=== PATIENT | male | born 2000 | race Native Hawaiian/Other Pacific Islander ===

== ENCOUNTER 2022-03-01 17:14 | Emergency (ER) | payer OTHER, MEDICAID, SELFPAY ==
[2022-03-01 17:25] VITALS: BP 119/79; PULSE 90; RESP 18; TEMP 36.8; O2SAT 99; BMI 21.5
--- NOTE | 2022-03-01 17:53 | ED.GENADULT ---
HPI - General Adult General Chief complaint: Laceration/Wound Stated complaint: Left Arm Laceration Time Seen by Provider: 03/01/22 17:27 Source: patient Mode of arrival: ambulatory Limitations: no limitations History of Present Illness HPI narrative: 21-year-old male coming in today concerned about a puncture wound to his arm. States that he was at work and a piece of aluminum went into his arm. Denies any other injury. Unsure of his last tetanus shot. He was able to remove the entire piece of aluminum without difficulty. Related Data Previous Rx's Medication Instructions Recorded amoxicillin 875 mg-potassium 1 tab PO BID #10 tabs 03/01/22 clavulanate 125 mg tablet Allergies Allergy/AdvReac Type Severity Reaction Status Date / Time No Known Drug Allergies Allergy Verified 03/01/22 17:32 Review of Systems Narrative: Denies other injury. Exam Narrative: Exam Narrative: Well-nourished well-developed patient in no acute distress. Alert and oriented. Answers questions appropriately. Mood and affect are appropriate. Thoughts are goal oriented and rational. No tangential or magical thinking noted. Patient speaks in full sentences without needing to catch their breath. Speech is not slurred or pressured. HEENT: Normocephalic atraumatic. Pupils are equally round reactive to light. Extraocular muscles are intact. Conjunctivae are moist without any icterus noted. Extremities: Patient has approximately a 7 mm open wound just proximal to the anterior flexor surface of the elbow. The skin is gaping open. The wound appears to go into the subcutaneous tissue but no further. He has full range of motion at the elbow, shoulder and wrist. Hand electronics scale tester is normal and symmetric. Biceps tendon appears to be intact. Const: Vital Signs, click to edit/add: Vital Signs - 24 hr 03/01/22 17:25 Temperature 98.2 F Pulse Rate [Pulse Oximeter] 90 Respiratory Rate 18 Blood Pressure [Ri ght Upper Arm] 119/79 Pulse Oximetry 99 Oxygen Delivery Me thod Room Air Course Course Hospital Course: Wound was washed out in the ED today with irrigation and wound cleanser. 1% lidocaine with epinephrine was used to anesthetize the area. One suture with 3-0 Ethilon was placed without difficulty. Tdap was last updated in 2010, therefore we did go ahead and update that today. Vital Signs Vital signs: Initial Vital Signs Temperature 98.2 F 03/01/22 17:25 Temperature Source Temporal Artery Scan 03/01/22 17:25 Pulse Rate 90 03/01/22 17:25 Pulse Rhythm 03/01/22 17:25 Respiratory Rate 18 03/01/22 17:25 Blood Pressure 119/79 03/01/22 17:25 Blood Pressure Mean 92 03/01/22 17:25 Blood Pressure Position Supine 03/01/22 17:25 Pulse Oximetry 99 03/01/22 17:25 Oxygen Delivery Method 03/01/22 17:25 Vital Signs Temperature 98.2 F 03/01/22 17:25 Pulse Rate 90 03/01/22 17:25 Respiratory Rate 18 03/01/22 17:25 Blood Pressure 119/79 03/01/22 17:25 Pulse Oximetry 99 03/01/22 17:25 Oxygen Delivery Method 03/01/22 17:25 Temperature 98.2 F 03/01/22 17:25 Pulse Rate 90 03/01/22 17:25 Respiratory Rate 18 03/01/22 17:25 Blood Pressure 119/79 03/01/22 17:25 Pulse Oximetry 99 03/01/22 17:25 Oxygen Delivery Method 03/01/22 17:25 Medical Decision Making MDM Narrative Medical decision making narrative: Puncture wound to upper left arm, sutured in the ED today. We discussed wound hygiene, signs and symptoms of infections, reasons to return to clinic. Given that we are uncertain of how deep the piece of metal went, I did prescribe him Augmentin to start in the event of infection. We discussed what infection looks like. He has any concerns I encouraged him to return to the ER. Otherwise we discussed suture removal in 7-10 days. Discharge Plan Discharge Clinical Impression: Puncture wound Patient Disposition: Home, Self-Care Condition: Improved Additional Instructions: Keep wound clean and dry. Okay to shower like he normally would but do not soak it-no swimming or sitting in a hot tub for example. Watch for signs of infection which include increasing redness around the wound, the redness will start to increase up and down the arm. If this occurs go ahead start your antibiotic. If you have any concerns about whether not it is infected follow-up with your primary care doctor right away. Suture should be removed by her primary care physician in about 7-10 days. Prescriptions: New amoxicillin-pot clavulanate 875-125 mg tablet 1 tab PO BID Qty: 10 0RF Follow Up/Referrals: Contreras Mcallister MD [Primary Care Provider] - Stand Alone Forms: [employer] Info Instructions
== END 2022-03-01 18:26 | disposition home or self-care (01) ==
LOC: ED 18:09
PROVIDERS: Emergency Provider Family Medicine; PCP Family Medicine
DX: S51.832A Puncture wound without foreign body of left forearm, initial encounter (principal); W26.9XXA Contact with unspecified sharp object(s), initial encounter
CPT/HCPCS: 12001; 90471; 99283

== ENCOUNTER 2022-08-22 21:09 | Emergency (ER) | payer MEDICAID, SELFPAY ==
[2022-08-22 21:13] VITALS: BP 149/83; PULSE 98; RESP 16; TEMP 36.6; O2SAT 100
--- NOTE | 2022-08-22 21:35 | CRLHL7_ITS ---
For Patients: As a result of the Century Cures Act, medical imaging exams and procedure reports are released immediately into your electronic medical record. You may view this report before your referring provider. If you have questions, please contact your health care provider. INDICATION: Chest wall pain. TECHNIQUE: Chest 2 view. COMPARISON: 02/20/2020. FINDINGS: Cardiovascular and mediastinum: Heart size and vasculature are normal in caliber and appearance. Lungs and pleural spaces: Lungs are clear. No sign of infiltrate or mass. No sign of pleural effusion. No pneumothorax. Bones and soft tissues: No significant findings. IMPRESSION: No acute or significant findings. Dictated by Jonathan Portillo MD @ 08/22/2022 10:01:52 PM (Electronically Signed)
--- NOTE | 2022-08-22 21:38 | ED_ITS ---
HPI - General Adult General Chief complaint: Back Injury/Pain Stated complaint: Upper back pain Time Seen by Provider: 08/22/22 21:21 Source: patient Mode of arrival: ambulatory Limitations: no limitations History of Present Illness HPI narrative: 22-year-old male presents with a 4 day history of pain along the right upper posterior shoulder blade area. No trauma or injury. Did start suddenly while he was walking out of work. He feels short of breath, worse with activity. No history of pneumothorax, DVT or PE. No family history of PE. He is not anticoagulated. No palpitations. No cough. No hemoptysis. No abdominal pain or fever. He has been taking Tylenol with no significant improvement in his pain and rates his pain 9/10. Has not tried NSAIDs. He had similar pain 1 month ago that lasted a couple of hours but then went away with no complications. No other prior history of similar symptoms. Past medical history is benign no major long-term health problems. No medications, no allergies. Socially is a nonsmoker with no illicit drug use. No pertinent travel. Family history negative for coagulopathy. ROS notable for the posterior chest pain only, otherwise negative times 12 systems. Related Data Previous Rx's Medication Instructions Recorded amoxicillin 875 mg-potassium 1 tab PO BID #10 tabs 03/01/22 clavulanate 125 mg tablet Allergies Allergy/AdvReac Type Severity Reaction Status Date / Time No Known Drug Allergies Allergy Verified 03/01/22 17:32 [facility] Social History Smoking Status: Never smoker Do you use any of these nicotine containing products: None Second hand tobacco smoke exposure: No How often do you have a drink containing alcohol: never How often do you have six or more drinks on one occasion: Never AUDIT-C Alcohol total score: 0 Non-prescribed substance use: denies use service: No Exam Const: Vital Signs, click to edit/add: Vital Signs - 24 hr 08/22/22 21:13 Temperature 97.9 F Pulse Rate [Left P ulse Oximeter] 98 Respiratory Rate 16 Blood Pressure [Ri ght Upper Arm] 149/83 H Pulse Oximetry 100 Oxygen Delivery Me thod Room Air Documenting provider has reviewed patient's vital signs: yes Common normals: no apparent distress General appearance: cooperative, comfortable and well kempt HENMT: Common normals: normocephalic Head and scalp: normocephalic Face and sinus: normal facial exam Mouth: oral and palatal mucosa normal Throat: posterior oropharynx normal Eye: Common normals: EOMs intact bilaterally General eye: normal appearance of both eyes Neck & C-Spine: Common normals: full ROM and no lymphadenopathy Chest: Common normals: inspection of chest normal and palpation of chest normal Resp: Common normals: normal respiratory effort, no use of accessory muscles and clear to auscultation bilaterally Effort & inspection: able to speak in complete sentences Auscultation: clear to auscultation bilaterally Cardio: Common normals: regular rate, regular rhythm, S1 normal heart sound, S2 normal heart sound, no murmurs and peripheral pulses 2+ throughout Rate: regular rate Rhythm: regular rhythm Heart sounds: S1 normal and S2 normal Peripheral pulses: pulses 2+ throughout GI: Common normals: Normal to inspection, nondistended, normoactive bowel sounds present, soft to palpation, non-tender and no hepatosplenomegaly Palpation: soft and no hepatosplenomegaly : Common normals: no CVA tenderness Bladder/kidney exam: no CVA tenderness Back & Pelvis: Common normals: no CVA tenderness and thoracic and lumbar spine normal to inspection Extremity: Common normals: normal capillary refill and no pedal edema Other: Calves are soft with no palpable cords. Neuro: Speech: speech normal Motor exam: no tremor noted and no movement abnormalities noted Psych: Common normals: thought process normal, cooperative and affect normal Appearance: well kempt Thought process: normal thought process Insight: insight good Judgement: judgment good Skin: Common normals: no rashes or lesions noted General skin exam: no ra shes or lesions noted Course Vital Signs Vital signs: Initial Vital Signs Temperature 97.9 F 08/22/22 21:13 Temperature Source Temporal Artery Scan 08/22/22 21:13 Pulse Rate 98 08/22/22 21:13 Pulse Rhythm 08/22/22 21:13 Respiratory Rate 16 08/22/22 21:13 Blood Pressure 149/83 H 08/22/22 21:13 Blood Pressure Mean 105 08/22/22 21:13 Blood Pressure Position Sitting 08/22/22 21:13 Pulse Oximetry 100 08/22/22 21:13 Oxygen Delivery Method 08/22/22 21:13 Vital Signs Temperature 97.9 F 08/22/22 21:13 Pulse Rate 98 08/22/22 21:13 Respiratory Rate 16 08/22/22 21:13 Blood Pressure 149/83 H 08/22/22 21:13 Pulse Oximetry 100 08/22/22 21:13 Oxygen Delivery Method 08/22/22 21:13 Temperature 97.9 F 08/22/22 21:13 Pulse Rate 98 08/22/22 21:13 Respiratory Rate 16 08/22/22 21:13 Blood Pressure 149/83 H 08/22/22 21:13 Pulse Oximetry 100 08/22/22 21:13 Oxygen Delivery Method 08/22/22 21:13 Medical Decision Making MDM Narrative Medical decision making narrative: Differential diagnosis pneumonia, pleurisy, pulmonary embolism, atypical cardiac disease, pneumothorax. Chest x-ray, CBC, D-dimer, CRP recommended. Toradol 15 mg IV x1. Re-evaluate once the studies are available. Update: Some improvement from Toradol. Labs reviewed with patient. Negative D- dimer, do not recommend CT PA. Suspect pleurisy. Reviewed diagnosis with patient. Alarm symptoms reviewed and discussed see discharge instructions for plan of care Lab Data Lab results reviewed: Yes I reviewed the patient's lab results Lab results narrative: Normal D-dimer, normal CRP. Other labs unremarkable. Labs: Lab Results 08/22/22 08/22/22 08/22/22 Range/Units 21:55 21:55 21:55 WBC 7.48 (4.50-11.00) K/uL RBC 5.67 (4.30-5.90) m/uL Hgb 14.5 (13.5-17.5) gm/dL Hct 44.4 (37.0-53.0) % MCV 78 L (80-100) fL MCH 26 (26-34) pg MCHC 33 (32-36) gm/dL RDW Coeff of Loree 14.1 (11.5-15.5) % Plt Count 268 (140-440) K/uL Neut % (Auto) 55.4 (42.0-72.0) % Lymph % (Auto) 32.8 (20-44) % Pratt % (Auto) 8.8 (0.0-11.0) % Eos % (Auto) 2.4 (0.0-7.0) % Baso % (Auto) 0.5 (0.0-3.0) % Neut # (Auto) 4.14 (1.7-7.0) K/uL Lymph # (Auto) 2.45 (0.90-2.90) K/uL Pratt # (Auto) 0.70 (0.00-0.90) K/UL Eos # (Auto) 0.18 (0.00-0.50) K/uL Baso # (Auto) 0.04 (0.00-0.30) K/uL D-Dimer Quant (PE/DVT) 0.34 (0.00-0.50) ug/ml Sodium 141 (135-149) mmol/L Potassium 4.0 (3.6-5.1) mmol/L Chloride 106 (96-114) mmol/L Carbon Dioxide 27 (20-32) mmol/L BUN 18 (5-24) mg/dL Creatinine 0.9 (0.5-1.5) mg/dL Estimated GFR 124 ml/min Glucose 78 (60-115) mg/dL Calcium 9.0 (8.4-10.6) mg/dL C-Reactive Protein < 0.5 L (0.5-1.0) mg/dL ECG Data Attestation: I personally reviewed and interpreted this ECG as follows: Prior ECG tracings: not available for review Interpretation: Normal sinus rhythm rate of 83. No ST or T-wave abnormalities. Good R-wave progression normal axis. Discharge Plan Discharge Clinical Impression: Pleurisy Patient Disposition: Home, Self-Care Condition: Improved Instructions: Pleurisy (DC) Additional Instructions: As we discussed, your chest x-ray is normal. There are no signs of pneumonia, blood clots, problems with your heart or other worrisome findings. All blood work is reassuring as well. This is great news. As we reviewed, your symptoms seem most consistent with pleurisy. This is a common, viral induced, inflammation of the lining of the lungs. It can be quite painful. It tends to last 3-4 weeks. It is okay to continue working and staying active, actually this reduce your risk of complications. For pain, I recommend Aleve which is an [id number] naproxen. Take 2 pills 2 times daily. This lasts longer than ibuprofen. You may also take Tylenol 1000 mg every 6 hours in addition to the Aleve if your pain is still very bothersome. If you start running high fevers and or began coughing up blood or purulent fluid, I recommend repeat evaluation. Activity Level: No Restrictions Discharge Diet: Regular Prescriptions: No Action amoxicillin-pot clavulanate 875-125 mg tablet 1 tab PO BID Qty: 10 0RF Follow Up/Referrals: Contreras Mcallister MD [Primary Care Provider] - Stand Alone Forms: [employer] Info Instructions
[2022-08-22] MEDS: KETOROLAC 15 MG/ML inj IVP (22:10)
[2022-08-22 22:16] LABS: Chloride* 106 mmol/L (96-114); Sodium* 141 mmol/L (135-149)
[2022-08-22 22:19] LABS: Creatinine* 0.9 mg/dL (0.5-1.5); Estimated Glomerular Filt Rate 124 ml/min
[2022-08-22 22:20] LABS: Blood Urea Nitrogen* 18 mg/dL (5-24); Carbon Dioxide* 27 mmol/L (20-32); Glucose* 78 mg/dL (60-115)
[2022-08-22 22:25] LABS: C Reactive Protein* < 0.5 mg/dL (0.5-1.0)
[2022-08-22 22:27] LABS: Basophils Absolute Auto 0.04 K/uL (0.00-0.30); Basophils Percent Auto 0.5 % (0.0-3.0); Eosinophils Absolute Auto 0.18 K/uL (0.00-0.50); Eosinophils Percent Auto 2.4 % (0.0-7.0); Hematocrit 44.4 % (37.0-53.0); Hemoglobin* 14.5 gm/dL (13.5-17.5); Immature Granulocytes Abs Auto 0.01 K/uL (0.00-0.30); Immature Granulocytes Pct Auto 0.1 %; Lymphocytes Absolute Auto 2.45 K/uL (0.90-2.90); Lymphocytes Percent Auto 32.8 % (20-44); Mean Corpuscular HGB Conc 33 gm/dL (32-36); Mean Corpuscular Hemoglobin 26 pg (26-34); Mean Corpuscular Volume 78 fL (80-100); Monocytes Percent Auto 8.8 % (0.0-11.0); Neutrophils Absolute Auto 4.14 K/uL (1.7-7.0); Neutrophils Percent Auto 55.4 % (42.0-72.0); Platelet Count* 268 K/uL (140-440); RDW Coefficient of Variation % 14.1 % (11.5-15.5); Red Blood Count 5.67 m/uL (4.30-5.90); White Blood Count* 7.48 K/uL (4.50-11.00)
[2022-08-22 22:30] LABS: Slide Review Reflex No
[2022-08-22 22:36] LABS: D Dimer Quantitative* 0.34 ug/ml (0.00-0.50)
== END 2022-08-22 23:05 | disposition home or self-care (01) ==
PROVIDERS: Emergency Provider Family Medicine; PCP Family Medicine
DX: R09.1 Pleurisy (principal)
CPT/HCPCS: 36415; 71046; 80048; 85025; 85379; 86140; 93005; 96374; 99283; 99284; 99285; J1885

== ENCOUNTER 2023-01-02 18:19 | Emergency (ER) | payer MEDICAID, SELFPAY ==
[2023-01-02 18:23] VITALS: BP 131/87; PULSE 99; RESP 16; TEMP 37.2; O2SAT 98; BMI 22.3
--- NOTE | 2023-01-02 18:42 | ED.GENADULT ---
HPI - General Adult General Chief complaint: Sore Throat Stated complaint: Sore throat for 3 weeks Time Seen by Provider: 01/02/23 18:23 Source: patient Mode of arrival: ambulatory Limitations: no limitations History of Present Illness HPI narrative: 22-year-old male notes a 3 week history of intermittent bilateral sore throat, worsening over the past few days. No fever. No breathing difficulty. No swallowing difficulty, tends to worsen at night. No cough, no sinus drainage, no ear pain. No trauma or injury. Has use Tylenol couple of times but not consistently. Has not tried ibuprofen. No salt water gargles. No other areas of illness or injury. Appetite is normal. Known exposures to strep or mono. Past medical history is benign, no major long-term health problems. Reports that he had an uncomplicated cholecystectomy 5 years ago. No allergies. Nonsmoker. ROS is notable for the generalized and HEENT symptoms as above, otherwise denies times 12 systems. Related Data Previous Rx's Medication Instructions Recorded amoxicillin 875 mg-potassium 1 tab PO BID #10 tabs 03/01/22 clavulanate 125 mg tablet fluticasone propionate 50 1 spray intranasal DAILY #16 grams 01/02/23 mcg/actuation nasal spray,suspension (Flonase Allergy Relief) loratadine 10 mg tablet 10 mg PO DAILY #30 tabs 01/02/23 Allergies Allergy/AdvReac Type Severity Reaction Status Date / Time No Known Drug Allergies Allergy Verified 01/02/23 18:23 [facility] Social History Smoking Status: Never smoker Do you use any of these nicotine containing products: None Second hand tobacco smoke exposure: No How often do you have a drink containing alcohol: never How often do you have six or more drinks on one occasion: Never AUDIT-C Alcohol total score: 0 Non-prescribed substance use: denies use service: No Exam Const: Vital Signs, click to edit/add: Vital Signs - 24 hr 01/02/23 18:23 Temperature 98.9 F Pulse Rate [Right Pulse Oximeter] 99 Respiratory Rate 16 Blood Pressure [Ri ght Upper Arm] 131/87 Pulse Oximetry 98 Oxygen Delivery Me thod Room Air Documenting provider has reviewed patient's vital signs: yes Common normals: no apparent distress General appearance: cooperative, comfortable and well kempt HENMT: Common normals: normocephalic, head/scalp atraumatic, TM's normal bilaterally and oropharynx normal Head and scalp: normocephalic and atraumatic Face and sinus: normal facial exam Tympanic membrane: TM's normal bilaterally Eye: Common normals: conjunctivae normal General eye: normal appearance of both eyes Conjunctiva: conjunctiva(e) normal Neck & C-Spine: Common normals: full ROM, no lymphadenopathy and thyroid normal Thyroid: thyroid normal Resp: Common normals: normal respiratory effort, no use of accessory muscles and clear to auscultation bilaterally Effort & inspection: able to speak in complete sentences Auscultation: clear to auscultation bilaterally Cardio: Common normals: regular rate, regular rhythm, S1 normal heart sound, S2 normal heart sound and no murmurs Rate: regular rate Rhythm: regular rhythm Heart sounds: S1 normal and S2 normal GI: Common normals: Normal to inspection, nondistended, normoactive bowel sounds present, soft to palpation, non-tender, no hepatosplenomegaly and no masses Palpation: soft and no hepatosplenomegaly Extremity: Common normals: normal to inspection and normal capillary refill Psych: Appearance: well kempt Attitude: calm and engaged Activity/motor behavior: appropriate eye contact Insight: insight good Judgement: judgment good Skin: Common normals: no rashes or lesions noted General skin exam: no rashes or lesions noted Course Course Hospital Course: Differential diagnosis including strep, mono, postnasal drip, environmental allergies, viral pharyngitis, among others. Exam is overall reassuring. Recommended ibuprofen for pain. Strep and mono screen ordered, pending. Reevaluation(s) Time of Reevaluation #1: 19:40 Reevaluation #1: Symptoms stable, reviewed lab findings with patient. Discussed alarm symptoms that would warrant repeat ED visit. Trial of nasal steroid and antihistamine for 2 weeks, primary care follow-up if not improving in 2 weeks. Vital Signs Vital signs: Initial Vital Signs Temperature 98.9 F 01/02/23 18:23 Temperature Source Temporal Artery Scan 01/02/23 18:23 Pulse Rate 99 01/02/23 18:23 Pulse Rhythm Regular 01/02/23 18:23 Pulse Strength 3+ Normal 01/02/23 18:23 Respiratory Rate 16 01/02/23 18:23 Blood Pressure 131/87 01/02/23 18:23 Blood Pressure Mean 101 01/02/23 18:23 Blood Pressure Position Sitting 01/02/23 18:23 Pulse Oximetry 98 01/02/23 18:23 Oxygen Delivery Method Room Air 01/02/23 18:23 Vital Signs Temperature 98.9 F 01/02/23 18:23 Pulse Rate 99 01/02/23 18:23 Respiratory Rate 16 01/02/23 18:23 Blood Pressure 131/87 01/02/23 18:23 Pulse Oximetry 98 01/02/23 18:23 Oxygen Delivery Method Room Air 01/02/23 18:23 Temperature 98.9 F 01/02/23 18:23 Pulse Rate 99 01/02/23 18:23 Respiratory Rate 16 01/02/23 18:23 Blood Pressure 131/87 01/02/23 18:23 Pulse Oximetry 98 01/02/23 18:23 Oxygen Delivery Method Room Air 01/02/23 18:23 Medical Decision Making MDM Narrative Medical decision making narrative: Differential diagnosis includes sinusitis, pharyngitis both bacterial or viral, allergies, tonsillitis, peritonsillar abscess, among others Lab Data Lab results reviewed: Yes I reviewed the patient's lab results Labs: Lab Results 01/02/23 01/02/23 Range/Units 18:40 18:44 Monoscreen Negative (Negative) Group A Strep DNA NOT DETECTED (Not Detectd) Discharge Plan Discharge Clinical Impression: Chronic sore throat Patient Disposition: Home, Self-Care Condition: Stable Instructions: Strep Throat (DC) Additional Instructions: As we discussed, your strep test is negative and so is your mono test. This is good news. I think that your sore throat is from a chronic postnasal drip, but I do not see any signs of a bacterial infection. I would recommend that we treat with an antihistamine and nasal steroid spray for a couple of weeks and see if your symptoms improve. I will send a prescription for loratadine, take this once daily in the morning with Flonase nasal spray also once daily to your pharmacy. Try this for 2 weeks. If things are not improving, I would recommend that you make a follow-up appointment with the primary care doctor and that they consider referral to an research and development tester. If her symptoms are accompanied by a high fever, severe weakness or neurological changes, or you have difficulty breathing and cannot swallow, come back to the emergency department. Activity Level: No Restrictions Discharge Diet: Regular Prescriptions: New loratadine 10 mg tablet 10 mg PO DAILY Qty: 30 1RF fluticasone propionate [Flonase Allergy Relief] 50 mcg/actuation spray,suspension 1 spray intranasal DAILY Qty: 16 1RF Rx Instructions: administer into each nostril No Action amoxicillin-pot clavulanate 875-125 mg tablet 1 tab PO BID Qty: 10 0RF Follow Up/Referrals: Contreras Mcallister MD [Primary Care Provider] - Stand Alone Forms: [employer] Info Instructions
[2023-01-02 18:56] LABS: Mono Screen* Negative (Negative)
[2023-01-02 19:21] LABS: Strep A DNA Probe* NOT DETECTED (Not Detectd)
[2023-01-02] MEDS: IBUPROFEN 200 MG TABLET 600 MG PO (19:45)
== END 2023-01-02 19:48 | disposition home or self-care (01) ==
PROVIDERS: Emergency Provider Family Medicine; PCP Family Medicine
DX: J02.9 Acute pharyngitis, unspecified (principal)
CPT/HCPCS: 36415; 86308; 87651; 99283; A9270

== ENCOUNTER 2025-04-22 19:57 | Emergency (ER) | payer OTHER, SELFPAY ==
--- OUTSIDE RECORDS SUMMARY | 2017-03-03 19:00 | XMS_ITS | Continuity of Care Document ---
Author Organization [facility] Address [address] [address] [place] [address] Care Team Providers Care Salesperson Furs Name Role Phone [place], [place] Unavailable Unav ailable Peggy Owens Unavailable Unavailable Procedures Procedure Date Ugi En Ugi En Advance Directives Directive Yes / No Effective Date File Name No Information Encounters Encounter Description Practice Location Reason(s) For Visit Diagnoses Date Provider Providers Copied on Encounter [facility], [address] [address], [place], [place], [id number], [place] [facility] [place] No Information 7 Endoscopy [facility]. [address] [address], [place], [place], [id number], . tel:[phone] Referring Provider: Azeem Devlin MD, [address] [facility] [address], [place], [address]. tel:[phone] lting Provider: Peggy Owens, [address] [facility] [address], [place], [address]. tel:[phone] [facility], [address] [address], [place], [place], [id number], [place] [facility] No Information [facility]. [address] [address], [place], [place], [address], [place]. tel:[phone] Referring Provider: Bonny XIAO I, [address] [facility] [address], [place], [address]. tel:[phone] Family History Family Member Type Diagnosis Age At Onset No Information Payers Payer name Insurance type Covered democrat ID Authoriza tion(s) No Information Social History Type Description Quantity Date Captured Comments Sex Male Smoking Status No Information Chief Complaint And Reason For Visit No Information Reason For Referral Reason For Referral No Information History Of Present Illness Encounter Date Complaint History Of Prese nt Illness No Information Functional Status Date Functional Assessmen t No Information Instructions Date Instruction Additional Infor mation No Information Assessments Type Assessment Date No Information Patient Care Teams Name Effective Dates (start - stop) Status Members No Information
--- OUTSIDE RECORDS SUMMARY | 2017-03-03 19:00 | XMS_ITS | Continuity of Care Document ---
Author Organization [facility] Address [address] [address] [place] [address] Care Team Providers Care Pig Handler Name Role Phone [place], [place] Unavailable Unav ailable Peggy Owens Unavailable Unavailable Procedures Procedure Date Ugi En Ugi En Advance Directives Directive Yes / No Effective Date File Name No Information Encounters Encounter Description Practice Location Reason(s) For Visit Diagnoses Date Provider Providers Copied on Encounter [facility], [address] [address], [place], [place], [id number], [place] [facility] [place] No Information 7 Endoscopy [facility]. [address] [address], [place], [place], [address], . tel:[phone] Referring Provider: Azeem Devlin MD, [address] [facility] [address], [place], [address]. tel:[phone] lting Provider: Peggy Owens, [address] [facility] [address], [place], [address]. tel:[phone] [facility], [address] [address], [place], [place], [address], [place] [facility] No Information [facility]. [address] [address], [place], [place], [address], [place]. tel:[phone] Referring Provider: Bonny XIAO I, [address] [facility] [address], [place], [address]. tel:[phone] Family History Family Member Type Diagnosis Age [...]
--- OUTSIDE RECORDS SUMMARY | 2017-03-05 06:39 | XMS_ITS | Continuity of Care Document ---
Author Organization [facility] Address [address] [address] [place] [address] Phone Care Team Providers Care Pipeline Integrity Engineer Name Role Phone Quita XIAO, Unavailable Unavailable Allergies, Adverse Reactions, Alerts Substance Reaction Status Criticality No Known Allergies Active No Inform ation Medications Medication Instructions Dosage Effective Dates (start - stop) Status Comments Carafate 1 gram tablet take 1 tablet by ORAL route 3 times every day on an empty stomach 1 hour before meals for 6 weeks - Active TUMS (unknown strength) take 1 Tablet by Oral route every day as needed Not Available - Active Procedures Procedure Date Ugi Endo; W/bx 1/mx Level Iv-surg Path Gross/micro 17 Immunocytochemistry, Each Antibody Offic/outpt E&m Estab Mod-hi 2 17 Ugi Endo; W/bx 1/mx Level Iv-surg Path Gross/micro 16 Anhydrous Ammonia Production Supervisor Sign Or Language Offic Cons New/estab Mod Routine Serum Collection Gg; Iga, Igd, Igg, Igm, Ea Bld Ct; Hg/pltlt Ct Auto/compl 16 Comp Metabolic Panel Lipase Amylase Anhydrous Ammonia Production Supervisor Sign Or Language Advance Directives Directive Yes / No Effective Date File Name No Information Encounters Encounter Description Practice Location Reason(s) For Visit Diagnoses Date Provider Providers Copied on Encounter [facility], [address] [address], [place], [id number], [place] tel:[phone] [facility] No Information 7 Quita Gann. [address] [facility], [facility] [address], [place], [id number] , [place]. tel:[phone] [facility], [address] [address], [place], [id number], [place] tel:[phone] [facility] Gastro-esophageal reflux disease without esophagitisEpigastr ic painUnspecified chronic gastritis without bleedingGastro-esop hageal reflux disease without esophagitis Quita Gann. [address] [facility], [place] [address], [place], [address] , [place]. tel:[phone] Referring Provider: Marvin Hernandez, [address], [place], [address]. tel:[phone] Offic/outpt E&m Estab Mod-hi 2 [facility], [address] [address], [place], [id number], [place] tel:[phone] [facility] GI Symptoms or Concerns (chief complaint) Gastroesophageal reflux disease, esophagitis presence not specified Quita Gann. [address] [facility], [facility] [address], [facility] [place], [address] , [place]. [phone] Referring Provider: Marvin Hernandez, [address], [place], [address]. tel:[phone] [facility], [address] [address], [place], [id number], [place] tel:[phone] Pediatric Clinic Abnormal findings on imaging of biliary tract 6 Quita Gann. [address] [facility], [facility] [address], [facility] [place], [address] , [place]. [phone] [facility], [address] [address], [place], [address], [place] tel:[phone] [facility] Epigastric pain 6 Quita Gann. [address] [place] [address], [facility] [place], [address] , [place]. tel: [phone] [facility], [address] [address], [place], [place], [address], [place] tel:[phone] [facility] Left upper quadrant painEpigastric painDysphagia, unspecified typeLeft upper quadrant painEpigastric pain 6 Mariano Draper. [address] [place] [address], [facility] [place], [address] , [place]. tel: [phone] Referring Provider: Chris Hernandez, [address] [place] [address], [address]. tel:[phone] [facility], [address] [address], [facility] [place], [address], [place] tel:[phone] [facility] No Information 6 Mariano Draper. [address] [place] [address], [place], [place], [address] , [place]. tel: [phone] Referring Provider: Chris Hernandez, [address] [place] [address], [address]. tel:[phone] Offic Cons New/estab Mod [facility], [address] [address], [place], [address], [place] tel:[phone] [facility] GI Symptoms or Concerns (chief complaint) Epigastric painLeft upper quadrant pain b-0 6 Quita Gann. [address] [place] [address], [facility] [place], [place], [address] , [place]. tel:[phone] Referring Provider: [facility], [address] [place] [address], [address]. tel:[phone] [facility], [address] [address], [place], [id number], [place] tel:[phone] [facility] No Information 6 Quita Gann. [address] [facility], [address], [place], [address] , [place]. tel:[phone] Referring Provider: Azeem Devlin MD, [address] [facility] [address], [place], [address] . tel:[phone] Family History Family Member Type Diagnosis Age At Onset Father Problem (finding) GERD Sister Problem (finding) Alive and well Brother Problem (finding) Alive and well Mother Problem (finding) malignant neoplasm of l lisa Immunizations Vaccine Date Status Comments Influenza virus vaccine, injectable, quadrivalent, split virus, preservative free, 3 years or older Fluarix Quad [id number] administered Note: Invalid docume nted admin date was . ; Source: Other Provider Payers Payer name Insurance type Covered democrat ID Authoriza tion(s) No Information Social History Type Description Quantity Date Captured Comments Sex Male Smoking Status No Information Chief Complaint And Reason For Visit No Information Reason For Referral Reason For Referral No Information Plan Of Treatment Date Type Action Status Referral Ordered: 07/18/2017 12:52 AM LIEN SEARCHER: CCD sent. 07/18/2017 12:52 AM LIEN SEARCHER: Message delivered to the recipient. (related to Gastroesophageal reflux disease, esophagitis presence not specified) ordered Referral Ordered: referred to Surgery - Pediatric Low GB ejection fraction of 14% ordered Referral Ordered: HIDA Scan WITH Ejection Fraction Appointment date/timeframe: 09/18/2015 ordered History Of Present Illness Encounter Date Complaint History Of Prese nt Illness GI Symptoms or Concerns This is a followup evaluation. Moe is a 16-1/2-year-old boy, who was initially seen in outpatient consultation in August 2015, when he had presented with complaints of epigastric and left upper quadrant abdominal pain. He underwent an extensive workup for his symptoms, which included an upper endoscopy with biopsies, which were unremarkable for any reflux or eosinophilic esophagitis, gastritis or celiac disease. He did not have any H. pylori infection. Further workup was done including an ultrasound of the abdomen, which was unremarkable as well. A HIDA scan was obtained, which showed a low gallbladder ejection fraction of 14% suggestive of biliary dyskinesia. After this, he was referred to Pediatric Surgery and underwent a laparoscopic cholecystectomy. His abdominal pain symptoms improved after that.Lately, for the past few months, he has been experiencing an ongoing cough and also complains of heartburn symptoms as well as oropharyngeal regurgitation. He has b GI Symptoms or Concerns This is an initial evaluation for abdominal pain. He is a 15-year-old boy who has been complaining of abdominal pain intermittently for the past three years. As per the patient, he has been evaluated at the emergency department three times because of intermittent worsening of his symptoms. The pain is epigastric/left upper quadrant in location and does not radiate to other quadrants. He complains of postprandial worsening of his symptoms, but did not implicate any particular foods that seem to aggravate his symptoms more than others. He does complain of frequent mid-sternal burning as well as pain. He is also frequently nauseous, but denies any vomiting. There is no history of any difficulty or pain with swallowing food, but he does get occasional sensation of food getting stuck with swallowing. In the past, he has been treated with proton-pump inhibitors as well as Tums, but it did not help much with his symptom. He was also trialed on a gluten-free diet, which was later dis Functional Status Date Functional Assessmen t No Information Instructions Date Instruction Additional Infor frederic 1. He will be schedu led for an upper endoscopy with biopsies to evaluate for biliary gastropathy, which would be suggestive of a bile reflux.2. If the endoscopy does not suggest biliary reflux, he will be started on a proton pump inhibitor medication.3. We discussed diet and lifestyle modifications. He must try to avoid foods that increase acid production such as tomato products, caffeinated beverages, chocolates, and citrus juices. Stress and anxiety should also be minimized to decrease acid production.Family voiced understanding of the above and did not have any further questions. Related to Gastroesophageal reflux disease, esophagitis presence not specified EGD 1. We will be schedu led for an upper endoscopy examination for further evaluation of his symptoms.2. Blood work will be obtained today as outlined below.3. If the above-mentioned workup is unremarkable, the next step in the evaluation would be an ultrasound of the gallbladder followed by a HIDA scan to assess for any gallbladder problems (gallbladder dyskinesia).4. A gastric emptying study will also be considered to evaluate for gastroparesis.Family voiced understanding of the above and did not have any further questions. Related to Epigastric pain EGD Related to Epiga stric pain Assessments Type Assessment Date No Information Patient Care Teams Name Effective Dates (start - stop) Status Members No Information
--- OUTSIDE RECORDS SUMMARY | 2017-03-05 06:39 | XMS_ITS | Continuity of Care Document ---
Author Organization [facility] Address [address] [address] [place] [address] Phone Care Team Providers Care Taco Maker Name Role Phone Quita XIAO, Unavailable Unavailable [...] W/bx 1/mx Level Iv-surg Path Gross/micro 16 Developer Architect Sign Or Language Offic Cons New/estab Mod Routine Serum Collection Gg; Iga, Igd, Igg, Igm, Ea Bld Ct; Hg/pltlt Ct Auto/compl 16 Comp Metabolic Panel Lipase Amylase Developer Architect Sign Or Language Advance Directives Directive Yes / No Effective Date File Name No Information Encounters Encounter Description Practice Location Reason(s) For Visit Diagnoses Date Provider Providers Copied on Encounter [facility], [address] [address], [place], [id number], [place] tel:[phone] [facility] No Information 7 Quita Gann. [address] [facility], [facility] [address], [place], [id number] , [place]. tel:[phone] [facility], [address] [address], [place], [id number], [place] tel:[phone] [facility] Gastro-esophageal reflux disease without esophagitisEpigastr ic painUnspecified chronic gastritis without bleedingGastro-esop hageal reflux disease without esophagitis Quita Gann. [address] [facility], [place] [address], [place], [id number] , [place]. tel:[phone] Referring Provider: Marvin Hernandez, [address], [place], [address]. tel:[phone] Offic/outpt E&m Estab Mod-hi 2 [facility], [address] [address], [place], [id number], [place] tel:[phone] [facility] GI Symptoms or Concerns (chief complaint) Gastroesophageal reflux disease, esophagitis presence not specified Quita Gann. [address] [facility], [facility] [address], [facility] [place], [address] , [place]. [phone] Referring Provider: Marvin Hernandez, [address], [place], [address]. tel:[phone] [facility], [address] [address], [place], [id number], [place] tel:[phone] Pediatric Clinic Abnormal findings on imaging of biliary tract 6 Quita Gann. [address] [facility], [facility] [address], [facility] [place], [id number] , [place]. [phone] [facility], [address] [address], [place], [place], [id number], [place] tel:[phone] Pediatric Clinic Epigastric pain 6 Quita Gann. [address] [place] [address], [facility] [place], [address] , [place]. tel: [phone] [facility], [address] [address], [place], [place], [address], [place] tel:[phone] [facility] Left upper quadrant painEpigastric painDysphagia, unspecified typeLeft upper quadrant painEpigastric pain 6 Mariano Draper. [address] [place] [address], [facility] [place], [place], [address] , [place]. tel: [phone] Referring Provider: Chris Hernandez, [address] [place] [address], [address]. tel:[phone] [facility], [address] [address], [facility], [address], [place] tel:[phone] [facility] No Information 6 Mariano Draper. [address] [place] [address], [place], [place], [address] , [place]. tel: [phone] Referring Provider: Chris Hernandez, [address] [place] [address], [address]. tel:[phone] Offic Cons New/estab Mod [facility], [address] [address], [place], [address], [place] tel:[phone] Pediatric [facility] GI Symptoms or Concerns (chief complaint) Epigastric painLeft upper quadrant pain b-0 6 Quita Gann. [address] [place] [address], [facility] [place], [address] , [place]. tel:[phone] Referring Provider: [facility], [address] [place] [address], [address]. tel:[phone] [facility], [address] [address], [place], [address], [place] tel:[phone] [facility] No Information 6 Quita Gann. [address] [facility], [address], [place], [id number] , [place]. tel:[phone] Referring Provider: Azeem Devlin MD, [address] [facility] [address], [place], [address] . tel:[phone] Family History Family Member Type Diagnosis Age At Onset Father Problem (finding) GERD Sister Problem (finding) Alive and well Brother Problem (finding) Alive and well Mother Problem (finding) malignant neoplasm of l lisa Immunizations Vaccine Date Status Comments Influenza virus vaccine, injectable, quadrivalent, split virus, preservative free, 3 years or older Fluarix Quad [id number] administered Note: Invalid docume nted admin date was . ; Source: Other Provider Payers Payer name Insurance type Covered constitution party ID Authoriza tion(s) No Information Social History Type Description Quantity Date Captured Comments Sex Male Smoking Status No Information Chief Complaint And Reason For Visit No Information Reason For Referral Reason For Referral No Information Plan Of Treatment Date Type Action Status Referral Ordered: 07/18/2017 12:52 AM TEACHER EDUCATION INSTRUCTOR: CCD sent. 07/18/2017 12:52 AM TEACHER EDUCATION INSTRUCTOR: Message delivered to the recipient. (related to [...]
--- OUTSIDE RECORDS SUMMARY | 2025-04-22 19:59 | XMS_ITS | Patient Health Record ---
Author Organization [facility] Address [facility] [address] Care Team Providers Care Dog Day Care Attendant Name Role Phone Quita XIAO, [facility] Primary Care Provider Eloina XIAO, [facility] [phone] Reason For Referral No Information Plan Of Treatment No Information Insurance Providers Payer Name Payer Address Payer Phone Subscriber Number Group Number Insured Name Patient Relationship to Insured Coverage Start Date Coverage End Date [employer] PMAP [address] [address] [place] [phone] [id number] Moe Walker Self - patient is the insured Medical (General) History Surgical History Surgery Date(Month/Year) Hospitalization History Reason Date(Month/Year)
--- OUTSIDE RECORDS SUMMARY | 2025-04-22 19:59 | XMS_ITS | Clinical Summary ---
Author Organization [facility] Address [address] [place] [id number] Care Team Providers Care Equipment Maintenance Engineer Name Role Phone Votel, Contreras Curry MD Primary Care Provider + Allergies No known active allergies Medications eucalyptus-pepp ermint oil (Ponaris) solnIndications :Epistaxis, recurrent Inhale 1 Squirt into affected nostril(s) 4 times daily if needed (moisturise nasal lining). 30 mL 2 12/09/2024 Active Active Problems Problem Noted Date Diagnosed Date Gastroesophageal reflux disease without esophagi tis 02/05/2017 Dysphagia 09/06/2015 GERD (gastroesophageal reflux disease) 5 Pectus excavatum 11/30/2014 Resolved Problems Problem Noted Date Diagnosed Date Resolved Date Gastroesophageal reflux dise ase without esophagitis 06/13/2015 06/13/2015 Encounters Date Type Department Care Team Description 04/14/2025 Orders Only [facility] Scanner 1 scan: (1-Ord) [facility], CHEST 2V, 04/14/2025 from Last 3 Months Immunizations Immunization Administration Dates Next Due AMB Influenza, IIV4 PF (=>6 mos Flulaval,Fluzone Fluarix)(Flu Clinic Only) 05/08/2018 DTaP 03/05/2005, 2,2001,12/10,2000 DTaP-HIB (TriHIBIT) 2000 Dtap-5 Pertussis Antigens 03/05/2005,,2001,12/10,2000,2000 HIB PRP-OMP (PedvaxHIB) 2000 HIB PRP-T (ActHIB,Hiberix) 2001,2000 ,2000 HIB-HepB (Comvax) 2001 HPV 9 (Gardasil 9) 06/26/2015,01/25/2014 Hepatitis A (Peds) 12/20/2011,06/14/2011 Hepatitis B (Peds) 2001,2000, 000 Hepatitis B, Unspecified 2000 Human Papilloma Virus Vaccine 01/25/2014 Inactivated Polio Vaccine 03/05/2005,,2000,08/15 Influenza A (H1N1), Inactivated 07/12/2009 Influenza A (H1N1), Inactiva zeferino (Age 6-35 Mos) 06/09/2009 Influenza A (H1N1), Inactiva zeferino (Age >=3 Years) 07/12/2009,06/09/2009 Influenza Virus, Unspecified 06/14/2011 Influenza, IIV3 (Age 6-35 mos) 05/31/2014,2009,05/16/2009 Influenza, IIV3 (Age >=3 years) 05/31/20 14,06/14/2011,05/16/2010,05/16,06/17/2008,05/13/2008 Influenza, IIV4 07/15/2016,06/13/2015 MENINGOCOCCAL VACCINE 2 VIAL 2MO-55YO (MENVEO) 07/15/2016,01/25/2014 MMR 03/05/2005,2001 Meningococcal Vaccine 01/25/2014 Meningococcal Vaccine (Menactra) 01/25/2014 Pneumococcal conj 13-Valent (Prevnar 13) 2001,2000,2000,08/15 Pneumococcal conj 7-Valent (Prevnar 7) 1 2000,2000,2000,08/15 Tdap 12/09/2024,06/14/2011 Varicella Vaccine 06/14/2011,2001 Family History Medical History Relation Name Comments Good Health Father Diabetes Maternal Grandfather Diabetes Maternal Grandmother Good Health Mother Hyperlipidemia Mother Diabetes Paternal Grandfather Diabetes Paternal Grandmother Relation Name Status Comments Brother Alive Father Alive Maternal Grandfather Maternal Grandmother Mother Alive Paternal Grandfather Paternal Grandmother Sister Alive Social History Tobacco Use Types Packs/Day Years Used Date Smoking Tobacco: Never Smokeless Tobacco: Never Tobacco Cessation:Counseling Given: Yes Comments:no exposure Alcohol Use Standard Drinks/Week Comments No 0 (1 standard drink = 0.6 oz pur e alcohol) PHQ-2 Answer Date Recorded PHQ-2 TOTAL SCORE 0 12/09/2024 Social Connections Answer Date Recorded Do you often feel lonely or isolated from those around you? 0 12/09/2024 Financial Resource Strain Answer Date R ecorded Difficulty of Paying Living Expenses 3 12/09/2024 Difficulty of Paying Living Expenses Not on file 12/09/2024 Food Insecurity Answer Date Recorded Do you worry your food will run out before you are able to buy more? 1 12/09/2024 Transportation Needs Answer Date Record ed Does lack of transportation keep you from medica l appointments? 1 12/09/2024 Does lack of transportation keep you from work, meetings or getting things that you need? 1 12/09/2024 Housing Stability Answer Date Recorded What is your housing situation today? 1 12/09/2024 Utilities Answer Date Recorded Do you have trouble paying f or utilities (for example, heat, electricity, water, phone)? 1 12/09/2024 Sex and Gender Information Value Date Recorded Sex Assigned at Not on file Legal Sex Male 10:56 AM CDT Gender Identity Not on file Sexual Orientation Not on file Obstetrics History Last Filed Vital Signs Vital Sign Reading Time Taken Comments Blood Pressure 113/73 12/09/2024 4:00 PM CDT Pulse 76 12/09/2024 4:00 PM CDT Temperature 37.3 C (99.1 F) 12/09/2024 4:00 PM CDT Respiratory Rate - - Oxygen Saturation 99% 12/09/2024 4:00 PM CDT Inhaled Oxygen Concentration - - Weight 65.5 kg (144 lb 6.4 oz) 12/09/2024 4:00 P M CDT Height 161.3 cm (5' 3.5) 12/09/2024 4:00 PM CDT Body Mass Index 25.17 12/09/2024 4:00 PM CDT Plan of Treatment Health Maintenance Due Date Last Done Comments Hepatitis C screening for age 18-79 2018 10/14/2017 COVID-19 vaccine series ( season) 2025 Influenza Vaccine (#1) 2025 8, 07/15/2016, 06/13/2015, Additional history exists BMI (ht and wt on same day) for age 18+ 12/09/2025 12/09/2024, 08/03/2020, 03/21/2020, Additional history exists Depression screening for age 12+ 12/09/2025 12/09/2024, 03/21/2020, 02/25/2019, Additional history exists Tetanus booster 12/09/2034 12/09/2024, 06/14/2011 RSV vaccine for adults or (1 - 1-dose 75+ series) 2075 Hepatitis B series for 19+ Completed 06/10, 2001, 2000, Additional history exists Pneumococcal series for age 6-49 Aged Out 2001, 2001, 2000, Additional history exists No longer eligible based on patient's age to complete this topic HPV series for age 9-45 Completed 06/26/20 15, 01/25/2014, 01/25/2014 HIV for age 15-65 Completed 10/14/2017 Procedures Procedure Name Priority Date/Time Associated Diagnosis Comments SCAN-RADIOLOGY REPORT 04/14/2025 12:00 AM CDT ANTI HIV 1/2 Routine 10/14/2017 4:54 PM CDT Routine screening for STI (sexually transmitted infection) ANTI HCV Routine 10/14/2017 4:54 PM CDT Routine screening for STI (sexually transmitted infection) from Last 3 Months or Most Recently Relevant to Health Maintenance Results * SCAN-RADIOLOGY REPORT (04/14/2025 12:00 AM CDT) Anatomical Region Laterality Modality Other us Scanner OTHER Final Result * ANTI HCV (10/14/2017 4:54 PM CDT) HEPATITIS C ANTIBODY Non-React melquiades Non-React melquiades 10/15/2017 2:22 PM CDT [facility] Comment:Antibodies to HCV no t detected; does not exclude the possibility of exposure to HCV. Blood BLOOD SPECIMEN / Unknown Venipuncture / Unknown 10/14/2017 4:54 PM CDT 10/14/2017 4:54 PM CDT Alissa English MD SEND OUTS Fin al Result Performing Organization Address City/[facility]/ZIP Co de Phone Number [facility] [address] [place] [address], * ANTI HIV 1/2 (10/14/2017 4:54 PM CDT) [facility] HIV-1/HIV-2 ANTIBODY Non-Reacti ve Non-Reacti ve 10/15/2017 2:21 PM CDT [facility] Comment:HIV-1 p24 and HIV-1/ HIV-2 Ab not detected. Blood BLOOD SPECIMEN / Unknown Venipuncture / Unknown 10/14/2017 4:54 PM CDT 10/14/2017 4:54 PM CDT Alissa English MD SEND OUTS Fin al Result Performing Organization Address City/[facility] Co de Phone Number [facility] [address] [place] [address], from Last 3 Months or Most Recently Relevant to Health Maintenance Insurance Care Teams Equipment Maintenance Engineer Relationship Specialty Start Date End Date Votel, Contreras Curry MD [address] [place] [id number] PCP - General Family Practice 12/06/19
[2025-04-22 20:00] VITALS: BP 155/89; PULSE 89; RESP 16; TEMP 36.7; O2SAT 100; BMI 24.0
--- NOTE | 2025-04-22 20:02 | ED.SOB ---
HPI - SOB/Dyspnea General Time Seen by Provider: 20:02 Date Seen: 04/22/25 Chief Complaint: Shortness of Breath/Dyspnea Stated Complaint: shortness of breath Time Seen by Provider: 04/22/25 19:58 Source: patient, RN notes reviewed and old records reviewed ([facility] note/CXR from 04/14/25 reviewed.) Mode of arrival: ambulatory Limitations: no limitations History of Present Illness HPI Narrative: This 24-year-old male is coming in for shortness of breath. He feels like he just cannot take a deep breath. He was in urgent care on April 14, had a normal chest x-ray. He had an EKG, his note from that visit is reviewed. He states that his symptoms have been present for about 3 weeks. The urgent care note states that he presented with a 4-5 day history of feeling short of breath. He states he has not been sick. He does have underlying GERD and has a little bit of a cough with that but there is no change. He really states he has not had much symptoms for his GERD, feels like his chest is heavy and throat is closing. He feels lightheaded. He has had no fevers. His EKG was reportedly normal without any ischemic changes or evidence of pericarditis. Chest x-ray was read by Radiology is normal. He notes no nasal congestion, no sneezing. He denies any history of asthma. MD elicited complaint: shortness of breath Related Data Home Medications ?Medication ?Instructions ?Recorded ?Confirmed fexofenadine .ROUTE 04/22/25 Previous Rx's ?Medication ?Instructions ?Recorded hydroxyzine HCl 25 mg tablet 25 mg PO TID PRN #10 tabs 04/22/25 omeprazole 40 mg capsule,delayed 40 mg PO DAILY #14 caps 04/22/25 release Allergies Allergy/AdvReac Type Severity Reaction Status Date / Time No Known Drug Allergies Allergy Verified 04/22/25 20:02 Review of Systems Status of ROS: Reports: 6 or more systems reviewed and unremarkable except as noted in History and below [facility] Medical History Shortness of breath ?R06.02 - Shortness of breath (ICD-10) Social History Smoking Status: Never smoker Do you use any of these nicotine containing products: None Second hand tobacco smoke exposure: No How often do you have a drink containing alcohol: never How often do you have six or more drinks on one occasion: Never AUDIT-C Alcohol total score: 0 Non-prescribed substance use: denies use service: No Exam Const: Vital Signs, click to edit/add: Vital Signs - 24 hr 04/22/25 20:00 04/22/25 20:10 04/22/25 21:18 Temperature 98.0 F 98.0 F Pulse Rate [Pulse Oximeter] 89 85 Respiratory Rate 16 16 Blood Pressure [Ri ght Upper Arm] 155/89 H 142/74 H Pulse Oximetry 100 100 100 Oxygen Delivery Me thod Room Air Room Air 04/22/25 21:19 Temperature 98.0 F Pulse Rate [Pulse Oximeter] 85 Respiratory Rate 16 Blood Pressure [Ri ght Upper Arm] 142/74 H Pulse Oximetry Oxygen Delivery Me thod This 24-year-old male is alert, interactive, no apparent distress, seen exam room to. His speech is normal, no hoarseness. He is seen taking deep breaths at times, does seem mildly anxious. His vitals are very normal, his pulse is normal at 89, pulse oximetry is 100%. Sclera clear, face atraumatic, anterior nares normal, no mucosal changes. Oropharynx dry mucosa, no exudates erythema. Neck is supple, no adenopathy, no jugular venous distension, no thyromegaly masses or nodules. Lungs are clear, good air entry, no wheezing or crackles, no tachypnea, no accessory muscle use. CV regular rate and rhythm, no murmur, normal S1-S2, no S3-S4. He has no lower extremity edema. Documenting provider has reviewed patient's vital signs: yes Course Course ED Course: Reviewed with this patient that his vitals are very reassuring. His exam is very reassuring. We will look at a chest x-ray, have him on pulse oximetry, look at an EKG and recheck labs. It is possible that he might be having some complication of GERD. I do think anxiety might be in the differential as well but we will certainly look at any cardiopulmonary etiologies. Will also do a D-dimer. This were to come back positive, will do chest CT PE protocol. Highly doubt that this is a pulmonary embolus given his normal vitals. Reevaluation(s) Time of Reevaluation #1: 20:52 Reevaluation #1: Patient's status in the room now. We have discussed that his workup is normal outside of the venous pH being a little alkalotic which would go with more rapid breathing that we sometimes see with anxiety. I do think there is a chance that he could have a component of GERD. If it is starting to make him symptomatic with his breathing, it certainly could produce anxiety. We did discuss that anxiety itself can make people feel short of breath. We are going to give him a dose of 40 mg IV Protonix here. Will start a short course of omeprazole and have him follow up in clinic. I also will give him a prescription of hydroxyzine to help with anxiety. He will need to follow up in clinic. We also discussed getting a pulse oximeter just make sure his oxygenation is above 90%, he will know that he is breathing fine than then. Vital Signs Vital signs: Initial Vital Signs Temperature 98.0 F 04/22/25 20:00 Temperature Source Temporal Artery Scan 04/22/25 20:00 Pulse Rate 89 04/22/25 20:00 Respiratory Rate 16 04/22/25 20:00 Respiratory Effort Normal, Spontaneous, Non-Labored 04/22/25 20:00 Respiratory Depth Normal 04/22/25 20:00 Respiratory Pattern Normal 04/22/25 20:00 Blood Pressure 155/89 H 04/22/25 20:00 Blood Pressure Mean 111 H 04/22/25 20:00 Blood Pressure Position Sitting 04/22/25 20:00 Pulse Oximetry 100 04/22/25 20:00 Oxygen Delivery Method Room Air 04/22/25 20:00 Vital Signs Temperature 98.0 F 04/22/25 20:00 Pulse Rate 89 04/22/25 20:00 Respiratory Rate 16 04/22/25 20:00 Blood Pressure 155/89 H 04/22/25 20:00 Pulse Oximetry 100 04/22/25 20:00 Oxygen Delivery Method Room Air 04/22/25 20:00 Temperature 98.0 F 04/22/25 21:19 Pulse Rate 85 04/22/25 21:19 Respiratory Rate 16 04/22/25 21:19 Blood Pressure 142/74 H 04/22/25 21:19 Pulse Oximetry 100 04/22/25 21:18 Oxygen Delivery Method Room Air 04/22/25 21:18 Medications Administered Medications: Discontinued Medications Generic Name Dose Route Start Last Admin Trade Name Kaila PRN Reason Stop Dose Admin Ketorolac Tromethamine 15 mg 04/22/25 20:27 04/22/25 21:31 Ketorolac 15 Mg/Ml Inj IVP 04/22/25 20:28 Not Given ONCE ONE Pantoprazole Sodium 40 mg 04/22/25 20:55 04/22/25 21:17 Pantoprazole Sodium 40 Mg Inj IVP 04/22/25 20:56 40 mg ONCE ONE Administration MDM - SOB/Dyspnea Lab Data Attestation: I reviewed the patient's lab results. Labs: Lab Results 04/22/25 04/22/25 04/22/25 Range/Units 20:09 20:10 20:24 WBC 7.17 (4.50-11.00) K/uL RBC 5.74 (4.30-5.90) m/uL Hgb 14.3 (13.5-17.5) gm/dL Hct 43.1 (37.0-53.0) % MCV 75 L (80-100) fL MCH 25 L (26-34) pg MCHC 33 (32-36) gm/dL RDW Coeff of Loree 14.0 (11.5-15.5) % Plt Count 276 (140-440) K/uL Neut % (Auto) 55.0 (42.0-72.0) % Lymph % (Auto) 33.5 (20-44) % [place] % (Auto) 8.4 (0.0-11.0) % Eos % (Auto) 2.4 (0.0-7.0) % Baso % (Auto) 0.6 (0.0-3.0) % Neut # (Auto) 3.95 (1.7-7.0) K/uL Lymph # (Auto) 2.40 (0.90-2.90) K/uL [place] # (Auto) 0.60 (0.00-0.90) K/UL Eos # (Auto) 0.17 (0.00-0.50) K/uL Baso # (Auto) 0.04 (0.00-0.30) K/uL Abs Immat Gran (auto) 0.01 (0.00-0.30) K/uL Imm/Tot Granulo (auto) 0.1 % ESR 4 (2-15) mm/hr D-Dimer Quant (PE/DVT) 0.27 (0.00-0.50) ug/ml VBG pH 7.478 H (7.32-7.43) VBG pCO2 34 L (40-50) mmHG VBG pO2 31.5 (25-47) mmHG VBG HCO3 25 (21-28) mmol/L Sodium 137 (135-149) mmol/L Potassium 4.0 (3.6-5.1) mmol/L Chloride 103 (96-114) mmol/L Carbon Dioxide 25 (20-32) mmol/L Anion Gap 9 (7-15) mEq/L BUN 19 (5-24) mg/dL Creatinine 1.0 (0.5-1.5) mg/dL Estimated Creat Clear 95.38 Estimated GFR 108 ml/min Glucose 94 (60-115) mg/dL Calcium 9.4 (8.4-10.6) mg/dL Total Bilirubin 0.3 (0.1-1.5) mg/dL AST 33 (12-35) U/L ALT 25 (4-50) U/L Alkaline Phosphatase 103 (40-150) U/L C-Reactive Protein < 0.5 L (0.5-1.0) mg/dL NT-Pro-B Natriuret Pep < 20 (See Note) pg/mL Total Protein 8.0 (6.0-8.3) g/dL Albumin 4.8 (3.3-5.0) g/dL Lab Acknowledgement Test Added POC Troponin I 0.00 L (0.01-0.04) ng/ml Imaging Data Chest x-ray: Attestation: I have reviewed the pertinent imaging results. My impression: Portable chest x-ray visualize, I see no evidence cardiomegaly, no infiltrate or congestive changes, no pneumothorax. Radiologist's impression: Patient: BRIT VELASCO Facility:?[facility] Patient ID:?[id number] Site Patient ID:?[id number]. Site :?[id number] Study:?XRay-Chest PCXR-04/22/2025 8:25:28 PM Ordering Physician:?Elba Brown Final Report: Indication: Shortness of breath Technique: Single view of the chest Comparison: Chest radiograph performed 04/14/2025 Findings/Impression: No acute cardiopulmonary process detected. Dictated by Santy Cruz MD @ 04/22/2025 8:29:24 PM (Electronic Signature) ECG Data Attestation: I personally reviewed and interpreted this ECG as follows: (Normal sinus rhythm, 80 beats per minute. Patient has early repolarization which has been the same on prior EKGs from 04/14/2025 and 08/22/2022.) ECG interpretation date: 04/22/25 ECG interpretation time: 20:30 Prior ECG tracings: available for review Discharge Plan Discharge Clinical Impression: Shortness of breath Patient Disposition: Home, Self-Care Condition: Stable Instructions: GERD (Gastroesophageal Reflux Disease) (ED), Shortness of Breath (ED) Additional Instructions: Start omeprazole tomorrow and take for 2 weeks, see if it helps your symptoms. I will also send a prescription for Vistaril which can be used with acute anxiety, this is not addictive. You need to schedule a clinic followup within the next week. I also recommend getting a pulse oximeter, you can check your pulse and your oxygenation with that. If your pulse oximetry is ever below 90% after having a pulse oximeter on your finger for a full minute and maintaining 90%, then you should be rechecked. Activity Level: Activity as Tolerated Prescriptions: New omeprazole 40 mg capsule,delayed release(DR/EC) 40 mg PO DAILY Qty: 14 0RF hydroxyzine HCl 25 mg tablet 25 mg PO TID PRNQty: 10 0RF No Action fexofenadine [[place] Allergy] .ROUTE Follow Up/Referrals: Contreras Mcallister MD [Primary Care Provider, Family Practice] Stand Alone [facility]: [facility] Info Instructions Procedures ABG Interpretation ABG Results: 04/22/25 20:09 VBG pH 7.478 H VBG pCO2 34 L VBG pO2 31.5 VBG HCO3 25
--- NOTE | 2025-04-22 20:09 | CRLHL7_ITS ---
For Patients: As a result of the Cures Act, medical imaging exams and procedure reports are released immediately into your electronic medical record. You may view this report before your referring provider. If you have questions, please contact your health care provider. Indication: Shortness of breath Technique: Single view of the chest Comparison: Chest radiograph performed 04/14/2025 Findings/Impression: No acute cardiopulmonary process detected. Dictated by Santy Cruz MD @ 04/22/2025 8:29:24 PM (Electronically Signed)
[2025-04-22 20:10] VITALS: O2SAT 100
[2025-04-22 20:22] LABS: HCO3 VBG 25 mmol/L (21-28); PCO2 VBG 34 mmHG (40-50); PO2 VBG 31.5 mmHG (25-47); pH VBG 7.478 (7.32-7.43)
[2025-04-22 20:23] LABS: Hematocrit* 43.1 % (37.0-53.0); Hemoglobin* 14.3 gm/dL (13.5-17.5); Immature Granulocytes Abs Auto 0.01 K/uL (0.00-0.30); Immature Granulocytes Pct Auto 0.1 %; Lymphocytes Absolute Auto 2.40 K/uL (0.90-2.90); Mean Corpuscular HGB Conc 33 gm/dL (32-36); Mean Corpuscular Hemoglobin 25 pg (26-34); Mean Corpuscular Volume 75 fL (80-100); RDW Coefficient of Variation % 14.0 % (11.5-15.5); Red Blood Count* 5.74 m/uL (4.30-5.90); White Blood Count* 7.17 K/uL (4.50-11.00)
[2025-04-22 20:28] LABS: Troponin, Point-of-Care* 0.00 ng/ml (0.01-0.04)
[2025-04-22 20:35] LABS: Slide Review Reflex No
[2025-04-22 20:37] LABS: Albumin* 4.8 g/dL (3.3-5.0); Chloride* 103 mmol/L (96-114); Potassium* 4.0 mmol/L (3.6-5.1); Sodium* 137 mmol/L (135-149)
[2025-04-22 20:39] LABS: Blood Urea Nitrogen* 19 mg/dL (5-24); Creatinine* 1.0 mg/dL (0.5-1.5); Est. Creatinine Clearance* 95.38; Estimated Glomerular Filt Rate 108 ml/min
[2025-04-22 20:40] LABS: Alanine Aminotransferase* 25 U/L (4-50); Alkaline Phosphatase* 103 U/L (40-150); Anion Gap 9 mEq/L (7-15); Aspartate Amino Transferase* 33 U/L (12-35); Bilirubin Total* 0.3 mg/dL (0.1-1.5); Carbon Dioxide* 25 mmol/L (20-32); Total Protein* 8.0 g/dL (6.0-8.3)
[2025-04-22 20:41] LABS: Calcium* 9.4 mg/dL (8.4-10.6); D Dimer Quantitative* 0.27 ug/ml (0.00-0.50); Glucose* 94 mg/dL (60-115)
[2025-04-22 20:50] LABS: NT Pro B Type NatriureticPept* < 20 pg/mL (See Note)
[2025-04-22 21:05] LABS: Erythrocyte SedimentationRate* 4 mm/hr (2-15)
[2025-04-22] MEDS: PANTOPRAZOLE SODIUM 40 MG INJ IVP (21:17)
[2025-04-22 21:18] VITALS: BP 142/74; PULSE 85; RESP 16; TEMP 36.7; O2SAT 100
[2025-04-22 21:19] VITALS: BP 142/74; PULSE 85; RESP 16; TEMP 36.7
== END 2025-04-22 21:19 | disposition home or self-care (01) ==
PROVIDERS: Emergency Provider Family Medicine; PCP Family Medicine
DX: R06.02 Shortness of breath (principal)
CPT/HCPCS: 36415; 71045; 80053; 82803; 83880; 84484; 85025; 85379; 85651; 86140; 93005; 94761; 96374; 99284; J2470